=== PATIENT | female | born 1970 | race Caucasian/White ===

== ENCOUNTER 2018-02-12 01:31 | Emergency (ER) | payer OTHER, SELFPAY ==
[2018-02-12] MEDS ORDERED: MAGNE/ALUM HYDROXD 30 ML UCUP ONE (02:07)
[2018-02-12] MEDS ORDERED: ONDANSETRON 4 MG (ODT) TAB ONE (02:07)
[2018-02-12] MEDS ORDERED: LIDOCAINE VISCOUS 2% SOLN 15 ML UDC ONE (02:07)
--- NOTE | 2018-02-12 02:21 | EDPHYS ---
Physician Documentation [facility] Name: Nidia Bradley Age: 47 yrs Sex: Female : 1970 Arrival Date: 02/12/2018 Time: 01:35 Bed 4 Private MD: ED Physician Zeeshan Resendez HPI: 02/12 02:00 This 47 yrs old Female presents to ER via Ambulatory with complaints of cp vomiting. 02:00 Onset: The symptoms/episode began/occurred suddenly, tonight awoke patient from sleep. cp 02:00 The patient or guardian reports chest pain that is located primarily in the substernal cp area. 02:00 Onset: suddenly, just prior to arrival. The chest pain is described as burning. cp Duration: The patient or guardian reports a single episode, that is still ongoing, and unchanged. The patient has experienced similar episodes in the past, today's symptoms are similar, to when the patient was apparently diagnosed with indigestion, acid reflux. 02:00 Severity of pain: in the emergency department the pain is unchanged despite home cp interventions. 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 - Social history:: Smoking status: unknown. - Ebola Screening: : No symptoms or risks identified at this time. ROS: 02:05 Constitutional: Negative for body aches, chills, fever. cp 02:05 Eyes: Negative for injury, pain, redness, and discharge. cp 02:05 ENT: Negative for drainage from ear(s), ear pain, sore throat, difficulty swallowing, difficulty handling secretions. 02:05 Neck: Negative for injury or acute deformity, pain with movement, pain at rest, stiffness, swelling. 02:05 Cardiovascular: Positive for chest pain, of the retrosternal, Negative for edema, palpitations. 02:05 Respiratory: Negative for cough, hemoptysis, shortness of breath, wheezing. 02:05 Abdomen/GI: Positive for nausea, vomiting, Negative for diarrhea, constipation, anorexia, dysphagia, hematemesis, black/tarry stool, rectal bleeding. 02:05 Back: Negative for pain at rest, pain with movement, radiated pain. 02:05 : Negative for urinary symptoms, flank pain. 02:05 Skin: Negative for cellulitis, rash. 02:05 Neuro: Negative for altered mental status, dizziness, headache, syncope, near syncope, weakness. 02:05 All other systems are negative. Exam: 02:09 Constitutional: The patient appears in no acute distress, alert, awake, cp non-diaphoretic, non-toxic, well developed, well nourished. 02:09 Head/Face: Normocephalic, atraumatic. cp 02:09 Eyes: Periorbital structures: appear normal, Pupils: equal, round, and reactive to light and accomodation, Extraocular movements: intact throughout, Conjunctiva: normal, no exudate, no injection, Sclera: no appreciated abnormality, Lids and lashes: appear normal, bilaterally. 02:09 ENT: External ear(s): are unremarkable, Ear canal(s): are normal, clear, TM's: bulging, is not appreciated, bilaterally, dullness, bilaterally, erythema, is not appreciated, bilaterally, Nose: is normal, Mouth: Lips: moist, Oral mucosa: pink and intact, moist, Posterior pharynx: is normal, airway is patent, no erythema, no exudate. 02:09 Neck: ROM/movement: is normal, is supple, without pain, no range of motions limitations, no nuchal rigidity, Lymph nodes: no appreciated lymphadenopathy. 02:09 Chest/axilla: Inspection: normal. 02:09 Cardiovascular: Rate: normal, Rhythm: regular, Edema: is not appreciated, JVD: is not appreciated. 02:09 Respiratory: the patient does not display signs of respiratory distress, Respirations: normal, no use of accessory muscles, no retractions, no splinting, no tachypnea, Breath sounds: are clear throughout, no decreased breath sounds, no stridor, no wheezing. 02:09 Abdomen/GI: Inspection: abdomen appears normal, Palpation: abdomen is soft and non-tender, in all quadrants, rebound tenderness, is not appreciated, voluntary guarding, is not appreciated, involuntary guarding, is not appreciated. 02:09 Back: pain, is absent, ROM is normal. 02:09 Skin: cellulitis, is not appreciated, no rash present. 02:09 Neuro: Orientation: to person, place \T\ time. Mentation: lucid, able to follow commands, Cerebellar function: is grossly normal, Motor: moves all fours, strength is normal, Sensation: is normal. Vital Signs: 01:43 BP 117 / 84; Pulse 94; Resp 20; Temp 98; Pulse Ox 97% on R/A; Weight 77.11 kg (R); ak1 Height 5 ft. 7 in. (170.18 cm) (R); Pain 10/10; 01:43 Body Mass Index 26.63 (77.11 kg, 170.18 cm) ak1 MDM: 01:48 Patient medically screened. wa 02:04 Differential diagnosis: abnormal EKG, acute myocardial infarction, acute pericarditis, cp cholecystitis, Cholelithiasis costochondritis, esophagitis, gastritis, pneumonia, pneumothorax, pulmonary embolus, stable angina, thoracic aortic disection, unstable angina. 02:05 Refusal of service: The patient/guardian displays adequate decision making capability cp and despite a detailed discussion of alternatives, benefits, risks, and consequences refuses: all lab tests, all X-rays. 02:20 The patient was not given aspirin in the Emergency Department. Aspirin not given, cp patient refused. Data reviewed: vital signs, nurses notes, and as a result, I will discharge patient. 02:20 ED course: VSS. Symptoms improved with meds. Patient refused labs, EKG, chest xray. cp Will discharge to home for continued monitoring. 02/12 01:58 Order name: Amylase, Serum cp 02/12 01:58 Order name: Basic Metabolic Panel cp Administered Medications: 02:13 Drug: GI Cocktail without - (Maalox Suspension 30 ml, Lidocaine Liquid 2 % 15 jd3 ml) Route: PO; 02:31 Follow up: Response: No adverse reaction; Pain is decreased jd3 02:13 Drug: Zofran 4 mg Route: PO; jd3 02:29 Follow up: Response: No adverse reaction jd3 02:28 Not Given (Patient Refused): Zofran 4 mg IVP once; over 2 minutes jd3 02:31 Not Given (Patient Refused): ProTONIX 40 mg IVP once jd3 02:31 Not Given (Patient Refused): Aspirin Chewable Tablet 324 mg PO once; 81 mg tablets x 4 jd3 02:33 Not Given (Patient Refused): Pepcid 20 mg IVP once jd3 02:34 Not Given (Patient Refused): NS 0.9% 1000 ml IV at 1 bolus Per protocol; 1000 mL bolus jd3 Disposition: 02/12/18 02:20 Discharged to Home. Impression: Nausea and vomiting. - Condition is Stable. - Discharge Instructions: Nausea and Vomiting. - Prescriptions for Zofran 4 mg Oral Tablet - take 1 tablet by ORAL route every 12 hours As needed; 20 tablet. - Medication Reconciliation Form, Thank You Letter, Antibiotic Education, Prescription Opioid Use form. - Follow up: Gogo Rivas MD; When: 2 - 3 days; Reason: Recheck today's complaints. - Problem is an acute exacerbation. - Symptoms have improved. Addendum: 02/14/2018 10:22 Co-signature as Attending Physician, Zeeshan Resendez MD I agree with the assessment and w a plan of care. Signatures: Dispatcher [facility] Ella Calderón RN RN ak1 Surendra Tabor PA PA Zeeshan Plasencia MD MD wa Davies, Jonathon RN RN jd3 Corrections: (The following items were deleted from the chart) 02/12 02:17 02:00 Chest Single View+RAD.RAD.BRZ ordered. [facility] 02:33 01:58 Urine Dipstick-Ancillary ordered. jd3 02:33 01:58 EKG - Nurse/Tech ordered. jd3 02:34 01:58 Labs collected and sent ordered. jd3 02:35 01:58 IV Saline Lock ordered. jd3 02:36 01:59 UA MICROSCOPIC+U.LAB.BRZ ordered. [facility] 02:36 01:59 TROPONIN I+C.LAB.BRZ ordered. [facility] 02:36 02:20 02/12/2018 02:20 Discharged to Home. Impression: Nausea and vomiting. Condition jd3 is Stable. Forms are Medication Reconciliation Form, Thank You Letter, Antibiotic Education, Prescription Opioid Use. Follow up: Gogo Rivas; When: 2 - 3 days; Reason: Recheck today's complaints. Problem is an acute exacerbation. Symptoms have improved. cp
--- NOTE | 2018-02-12 02:21 | ER ---
Nurse's Notes [facility] Name: Nidia Bradley Age: 47 yrs Sex: Female : 1970 Arrival Date: 02/12/2018 Time: 01:35 Bed 4 Private MD: Diagnosis: Nausea and vomiting Presentation: 02/12 01:44 Presenting complaint: Patient states: woke up vomiting, pt c/o throat burning. pt ak1 stated she has had this happen prior and received a GI cocktail and the pain was relieved. Transition of care: patient was not received from another setting of care. Onset of symptoms was February 12, 2018. Risk Assessment: Do you want to hurt yourself or someone else? Patient reports no desire to harm self or others. Initial Sepsis Screen: Does the patient meet any 2 criteria? No. Patient's initial sepsis screen is negative. Does the patient have a suspected source of infection? No. Patient's initial sepsis screen is negative. Care prior to arrival: None. 01:44 Method Of Arrival: Ambulatory ak1 01:44 Acuity: JORGE A 4 ak1 Triage Assessment: 01:53 General: Appears in no apparent distress. General: Behavior is calm, cooperative. Pain: ak1 Complains of pain in thyroid cartilage, right aspect of thyroid, left aspect of thyroid and suprasternal notch. EENT: Oral mucosa is moist. Throat is clear. Neuro: No deficits noted. Cardiovascular: No deficits noted. Respiratory: No deficits noted. GI: Reports nausea, vomiting. : No signs and/or symptoms were reported regarding the genitourinary system. Derm: No signs and/or symptoms reported regarding the dermatologic system. Musculoskeletal: No signs and/or symptoms reported regarding the musculoskeletal system. 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 - Social history:: Smoking status: unknown. - Ebola Screening: : No symptoms or risks identified at this time. Screenin:55 Abuse screen: Denies threats or abuse. Denies injuries from another. Nutritional ak1 screening: No deficits noted. Tuberculosis screening: No symptoms or risk factors identified. Fall Risk None identified. Assessment: 01:44 General: Appears uncomfortable, Behavior is cooperative, appropriate for age, anxious. jd3 Pain: Complains of pain in throat Pain currently is 10 out of 10 on a pain scale. Quality of pain is described as burning, sharp, Is continuous, Also complains of nausea. Neuro: Level of Consciousness is awake, alert, obeys commands, Oriented to person, place, time, situation. Cardiovascular: Heart tones S1 S2 present Capillary refill < 3 seconds Patient's skin is warm and dry. Respiratory: Airway is patent Respiratory effort is even, unlabored, Respiratory pattern is regular, symmetrical, Breath sounds are clear bilaterally. GI: Abdomen is round Bowel sounds present X 4 quads. Abd is soft and non tender X 4 quads. Reports nausea, Patient currently denies abdominal pain. : No signs and/or symptoms were reported regarding the genitourinary system. EENT: No signs and/or symptoms were reported regarding the EENT system. Derm: Skin is intact, Skin is dry, Skin is normal, Skin temperature is warm. Musculoskeletal: Circulation, motion, and sensation intact. Range of motion: intact in all extremities. 01:44 Respiratory: Airway is patent Respiratory effort is even, unlabored, Respiratory jd3 pattern is regular, symmetrical, Breath sounds are clear bilaterally. 02:07 Reassessment: pt refused IV, Lab work, EKG and IV medications ERP notified. ak1 02:09 Reassessment: ERP canceled chest Xray. ak1 Vital Signs: 01:43 BP 117 / 84; Pulse 94; Resp 20; Temp 98; Pulse Ox 97% on R/A; Weight 77.11 kg (R); ak1 Height 5 ft. 7 in. (170.18 cm) (R); Pain 10/10; 01:43 Body Mass Index 26.63 (77.11 kg, 170.18 cm) ak1 ED Course: 01:35 Patient arrived in ED. es 01:44 Daniel Hernandez, CHERYL is Primary Nurse. jd3 01:47 Zeeshan Resendez MD is Attending Physician. wa 01:53 Triage completed. ak1 01:54 Surendra Tabor PA is PHCP. cp 01:55 Patient has correct armband on for positive identification. Bed in low position. Call ak1 light in reach. Side rails up X 1. Pulse ox on. NIBP on. 01:55 Arm band placed on Patient placed in an exam room, on a stretcher, on pulse oximetry, ak1 Patient notified of wait time. 02:07 No provider procedures requiring assistance completed. Patient did not have IV access ak1 during this emergency room visit. 02:19 Gogo Rivas MD is Referral Physician. cp Administered Medications: 02:13 Drug: GI Cocktail without - (Maalox Suspension 30 ml, Lidocaine Liquid 2 % 15 jd3 ml) Route: PO; 02:31 Follow up: Response: No adverse reaction; Pain is decreased jd3 02:13 Drug: Zofran 4 mg Route: PO; jd3 02:29 Follow up: Response: No adverse reaction jd3 02:28 Not Given (Patient Refused): Zofran 4 mg IVP once; over 2 minutes jd3 02:31 Not Given (Patient Refused): ProTONIX 40 mg IVP once jd3 02:31 Not Given (Patient Refused): Aspirin Chewable Tablet 324 mg PO once; 81 mg tablets x 4 jd3 02:33 Not Given (Patient Refused): Pepcid 20 mg IVP once jd3 02:34 Not Given (Patient Refused): NS 0.9% 1000 ml IV at 1 bolus Per protocol; 1000 mL bolus jd3 Outcome: 02:20 Discharge ordered by . cp 02:35 Discharged to home ambulatory. jd3 02:35 Condition: stable 02:35 Discharge instructions given to patient, Instructed on discharge instructions, follow up and referral plans. no drinking with medication, no driving heavy equipment, medication usage, Demonstrated understanding of instructions, follow-up care, medications, Prescriptions given X 1. 02:36 Patient left the ED. jd3 Signatures: Amanda Hutchison Amber RN RN ak1 Surendra Taobr PA PA cp Zeeshan Resendez MD MD wa Davies, Jonathon, RN RN jd3
== END 2018-02-12 02:36 | disposition home or self-care (01) ==
LOC: ER 01:31
DX: R11.2 Nausea with vomiting, unspecified (principal); K21.9 Gastro-esophageal reflux disease without esophagitis
CPT/HCPCS: 99283

== ENCOUNTER 2019-10-14 03:10 | Emergency (ER) | payer OTHER, SELFPAY ==
--- OUTSIDE RECORDS SUMMARY | 2019-10-14 03:13 | XMS REPORT ---
:1970 [facility] Address [address] [place] [address] Dr. Carmen [address] [place] [id number] Care Team Providers Name Role Phone Frank Liu Unavailable Unavailable Problems This patient has no known problems. Allergies, Adverse Reactions, Alerts This patient has no known allergies or adverse reactions. Medications This patient has no known medications. Encounters Start End Encounter Admission Attending Care Care Encounter Date/Time Date/Time Type Type Clinicians Facility Department ID 2017-01-19 2017-01-19 Outpatient EUSEBIO Liu [id number] 14:42:00 14:42:00 Frank
--- NOTE | 2019-10-14 03:54 | EDPHYS ---
Physician Documentation [facility] Name: Nidia Bradley Age: 48 yrs Sex: Female : 1970 Arrival Date: 10/14/2019 Time: 03:13 Bed 4 Private MD: ED Physician Mane Ivey HPI: 10/14 04:31 This 48 yrs old Female presents to ER via Ambulatory with complaints of kdr Reflux. 04:31 The patient presents with Reflux - "scalding" of her esophagus . Onset: The kdr symptoms/episode began/occurred acutely, suddenly, just prior to arrival. The symptoms do not radiate. Associated signs and symptoms: none. The symptoms are described as achy, burning, sharp, steady. Modifying factors: The symptoms are alleviated by Needs to get a GI cocktail . the symptoms are aggravated by coughing, breathing deeply, drinking. Severity of pain: At its worst the pain was severe incapacitating in the emergency department the pain has improved moderately. The patient has experienced similar episodes in the past. The patient has not recently seen a physician. 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 - Coronavirus screen:: The patient has NOT traveled to [place] in the past 14 days. Proceed with normal triage process as indicated. - Social history:: Smoking status: unknown Patient/guardian denies using alcohol, street drugs. - Ebola Screening: : Patient negative for fever greater than or equal to 101.5 degrees Fahrenheit, and additional compatible Ebola Virus Disease symptoms Patient denies exposure to infectious person Patient denies travel to an Ebola-affected area in the 21 days before illness onset. ROS: 04:31 Constitutional: Negative for fever, chills, and weight loss, Eyes: Negative for injury, kdr pain, redness, and discharge, ENT: Negative for injury, pain, and discharge, Neck: Negative for injury, pain, and swelling, Cardiovascular: Negative for chest pain, palpitations, and edema, Respiratory: Negative for shortness of breath, cough, wheezing, and pleuritic chest pain, Back: Negative for injury and pain, : Negative for injury, bleeding, discharge, and swelling, MS/Extremity: Negative for injury and deformity, Skin: Negative for injury, rash, and discoloration, Neuro: Negative for headache, weakness, numbness, tingling, and seizure activity. Psych: Negative for depression, anxiety, suicide ideation, homicidal ideation, and hallucinations, Allergy/Immunology: Negative for hives, rash, and allergies, Endocrine: Negative for neck swelling, polydipsia, polyuria, polyphagia, and marked weight changes, Hematologic/Lymphatic: Negative for swollen nodes, abnormal bleeding, and unusual bruising. 04:31 Abdomen/GI: Positive for Reflux pain - burning. Exam: 04:31 Constitutional: This is a well developed, well nourished patient who is awake, alert, kdr and in no acute distress. Head/Face: Normocephalic, atraumatic. Eyes: Pupils equal round and reactive to light, extra-ocular motions intact. Lids and lashes normal. Conjunctiva and sclera are non-icteric and not injected. Cornea within normal limits. Periorbital areas with no swelling, redness, or edema. Neck: Trachea midline, no thyromegaly or masses palpated, and no cervical lymphadenopathy. Supple, full range of motion without nuchal rigidity, or vertebral point tenderness. No Meningismus. Chest/axilla: Normal chest wall appearance and motion. Nontender with no deformity. No lesions are appreciated. Cardiovascular: Regular rate and rhythm with a normal S1 and S2. No gallops, murmurs, or rubs. Normal PMI, no JVD. No pulse deficits. Respiratory: Lungs have equal breath sounds bilaterally, clear to auscultation and percussion. No rales, rhonchi or wheezes noted. No increased work of breathing, no retractions or nasal flaring. Back: No spinal tenderness. No costovertebral tenderness. Full range of motion. Skin: Warm, dry with normal turgor. Normal color with no rashes, no lesions, and no evidence of cellulitis. MS/ Extremity: Pulses equal, no cyanosis. Neurovascular intact. Full, normal range of motion. Neuro: Awake and alert, GCS 15, oriented to person, place, time, and situation. Cranial nerves II-XII grossly intact. Motor strength 5/5 in all extremities. Sensory grossly intact. Cerebellar exam normal. Normal gait. Psych: Awake, alert, with orientation to person, place and time. Behavior, mood, and affect are within normal limits. 04:31 Abdomen/GI: Soft, non-tender, with normal bowel sounds. No distension or tympany. No guarding or rebound. No evidence of tenderness throughout. Vital Signs: 03:44 BP 102 / 80; Pulse 91; Resp 18; Temp 98; Pulse Ox 99% ; Weight 77.11 kg; Height 5 ft. 7 rr5 in. (170.18 cm); Pain 5/10; 04:05 BP 99 / 72; Pulse 85; Resp 17; Pulse Ox 99% ; rr5 03:44 Body Mass Index 26.63 (77.11 kg, 170.18 cm) rr5 MDM: 03:53 Patient medically screened. kdr 04:31 Data reviewed: vital signs, nurses notes, lab test result(s), radiologic studies. kdr Counseling: I had a detailed discussion with the patient and/or guardian regarding: the historical points, exam findings, and any diagnostic results supporting the discharge/admit diagnosis, the need for outpatient follow up. Administered Medications: 03:56 Drug: GI Cocktail without - (Maalox Suspension 30 ml, Lidocaine Liquid 2 % 15 rr5 ml) Route: PO; 04:06 Follow up: Response: No adverse reaction; Marked relief of symptoms rr5 Disposition: 10/14/19 03:53 Discharged to Home. Impression: Gastroespsophageal Reflux. - Condition is Stable. - Discharge Instructions: Gastroesophageal Reflux Disease, Adult, [id number], Food Choices for Gastroesophageal Reflux Disease, Adult, [id number]. - Medication Reconciliation Form, Thank You Letter form. - Follow up: Private Physician; When: 2 - 3 days; Reason: If symptoms return, Further diagnostic work-up, Recheck today's complaints, Continuance of care, Re-evaluation by your physician. - Problem is an acute exacerbation. - Symptoms have improved. - Notes: Continue your ususal medications Signatures: Mane Ivey MD MD kdr Roque, Raymond RN RN rr5 Corrections: (The following items were deleted from the chart) 04:06 03:53 10/14/2019 03:53 Discharged to Home. Impression: Gastroespsophageal Reflux. rr5 Condition is Stable. Forms are Medication Reconciliation Form, Thank You Letter, Antibiotic Education, Prescription Opioid Use. Follow up: Private Physician; When: 2 - 3 days; Reason: If symptoms return, Further diagnostic work-up, Recheck today's complaints, Continuance of care, Re-evaluation by your physician. Problem is an acute exacerbation. Symptoms have improved. kdr
--- NOTE | 2019-10-14 03:54 | ER ---
Nurse's Notes [facility] Name: Nidia Bradley Age: 48 yrs Sex: Female : 1970 Arrival Date: 10/14/2019 Time: 03:13 Bed 4 Private MD: Diagnosis: Gastroespsophageal Reflux Presentation: 10/14 03:40 Presenting complaint: Patient states: I woke up around 2 AM with acid reflux, burning rr5 feeling on my throat area. no Nausea, vomiting or diarrhea. 03:40 Transition of care: patient was not received from another setting of care. Onset of rr5 symptoms was October 14, 2019 at 02:00. Risk Assessment: Do you want to hurt yourself or someone else? Patient reports no desire to harm self or others. Initial Sepsis Screen: Does the patient meet any 2 criteria? No. Patient's initial sepsis screen is negative. Does the patient have a suspected source of infection? No. Patient's initial sepsis screen is negative. Care prior to arrival: None. 03:40 Method Of Arrival: Ambulatory rr5 03:40 Acuity: JORGE A 4 rr5 CARPET WINDER: 03:44 LMP 2009 rr5 Historical: - Allergies: 03:45 No Known Allergies; rr5 - Home Meds: 03:45 Protonix 40 mg Oral grps 1 packet once daily [Active]; rr5 - PMHx: 03:45 GERD; rr5 - PSHx: 03:45 ; rr5 - Immunization history:: Adult Immunizations up to date. - Coronavirus screen:: The patient has NOT traveled to [place] in the past 14 days. Proceed with normal triage process as indicated. - Social history:: Smoking status: unknown Patient/guardian denies using alcohol, street drugs. - Ebola Screening: : Patient negative for fever greater than or equal to 101.5 degrees Fahrenheit, and additional compatible Ebola Virus Disease symptoms Patient denies exposure to infectious person Patient denies travel to an Ebola-affected area in the 21 days before illness onset. Screenin:46 Abuse screen: Denies threats or abuse. Denies injuries from another. Nutritional rr5 screening: No deficits noted. Tuberculosis screening: No symptoms or risk factors identified. Fall Risk None identified. Total Wyman Fall Scale indicates No Risk (0-24 pts). Assessment: 03:46 General: Appears in no apparent distress. comfortable, Behavior is calm, cooperative, rr5 appropriate for age. Pain: Complains of pain in epigastric area Pain radiates to throat Pain currently is 5 out of 10 on a pain scale. Quality of pain is described as burning, Pain began 2 hours ago. Is intermittent. Neuro: Level of Consciousness is awake, alert, obeys commands, Oriented to person, place, time, situation, Appropriate for age. Cardiovascular: Capillary refill < 3 seconds Patient's skin is warm and dry. Respiratory: Airway is patent Respiratory effort is even, unlabored, Respiratory pattern is regular, symmetrical. GI: Abdomen is round non-distended, Reports upper abdominal pain, acid reflux. : No signs and/or symptoms were reported regarding the genitourinary system. EENT: Reports pain in left ear. Derm: Skin is intact, is healthy with good turgor, Skin temperature is warm. Musculoskeletal: Circulation, motion, and sensation intact. Capillary refill < 3 seconds. 04:05 Reassessment: Patient appears in no apparent distress at this time. discharge rr5 instruction given and explained without complaints made. Patient states feeling better. Patient states symptoms have improved. Vital Signs: 03:44 BP 102 / 80; Pulse 91; Resp 18; Temp 98; Pulse Ox 99% ; Weight 77.11 kg; Height 5 ft. 7 rr5 in. (170.18 cm); Pain 5/10; 04:05 BP 99 / 72; Pulse 85; Resp 17; Pulse Ox 99% ; rr5 03:44 Body Mass Index 26.63 (77.11 kg, 170.18 cm) rr5 ED Course: 03:13 Patient arrived in ED. es 03:27 Mane Ivey MD is Attending Physician. kdr 03:41 Tam Lr RN is Primary Nurse. rr5 03:43 Triage completed. rr5 03:46 Arm band placed on right wrist. rr5 03:48 Patient has correct armband on for positive identification. Placed in gown. Bed in low rr5 position. Call light in reach. Pulse ox on. NIBP on. 04:05 No provider procedures requiring assistance completed. Patient did not have IV access rr5 during this emergency room visit. Administered Medications: 03:56 Drug: GI Cocktail without - (Maalox Suspension 30 ml, Lidocaine Liquid 2 % 15 rr5 ml) Route: PO; 04:06 Follow up: Response: No adverse reaction; Marked relief of symptoms rr5 Outcome: 03:53 Discharge ordered by . kdr 04:05 Discharged to home ambulatory. rr5 04:05 Condition: stable 04:05 Discharge instructions given to patient, Instructed on discharge instructions, follow up and referral plans. Demonstrated understanding of instructions, follow-up care. 04:06 Patient left the ED. rr5 Signatures: Mane Ivey MD MD kdr Salyer, Edna es Roque, Raymond, RN RN rr5
[2019-10-14] MEDS ORDERED: MAGNE/ALUM HYDROXD 30 ML UCUP ONE (03:57)
[2019-10-14] MEDS ORDERED: LIDOCAINE VISCOUS 2% SOLN 15 ML UDC ONE (03:57)
[2019-10-14 04:37] VITALS: TEMP 98; O2SAT 99
[2019-10-14 04:38] VITALS: BP 99/72
== END 2019-10-14 04:06 | disposition home or self-care (01) ==
LOC: ER 03:10
DX: K21.9 Gastro-esophageal reflux disease without esophagitis (principal)
CPT/HCPCS: 99283